=== PATIENT | female | born 1960 | race Caucasian/White ===

== ENCOUNTER 2019-04-02 16:55 | Emergency (ER) | payer OTHER ==
--- NOTE | 2019-04-02 17:11 | ED Physician Documentation ---
General Adult - HISTORIAN Historian: patient - HPI Stated Complaint: laceration Chief Complaint: Laceration/Recheck/Suture Additional Information: Patient presents to ED with complaints of laceration to left hand and left wrist pain after falling last night around 2200. Patient states she did not hit her head. She reports walking outside in the dark and falling over concrete blocks. Onset: hours (22) Timing: still present Severity: moderate - ROS CONST: no problems EYES/ENT: none CVS/RESP: none GI/: none MS/SKIN/LYMPH: none NEURO/PSYCH: denies: headache - PAST HX Past History: none Other History: none Surgeries/Procedures: none Immunizations: denies: tetanus Allergies/Adverse Reactions: Allergies Allergy/AdvReac Type Severity Reaction Status Date / Time aspirin Allergy Verified 04/02/19 17:09 codeine Allergy Verified 04/02/19 17:09 ibuprofen Allergy Verified 04/02/19 17:09 Home Medications: Ambulatory Orders Medication Instructions Recorded Citalopram Hydrobromide 20 mg PO DAILY 04/02/19 [Citalopram HBr] Clonazepam 0.5 mg PO BID PRN 04/02/19 Gabapentin [Neurontin] 800 mg PO QID 04/02/19 HYDROcodone /APAP 5/325 [[place] 1 tab PO DAILY 04/02/19 5/325] Propranolol HCl [Inderal] 10 mg PO BID 04/02/19 Ranitidine HCl [Heartburn Relief] 150 mg PO BID 04/02/19 Simvastatin 40 mg PO DAILY 04/02/19 Valacyclovir HCl [Valtrex] 500 mg PO BID 04/02/19 - SOCIAL HX Smoking History: cigarettes Alcohol Use: none Drug Use: none - FAMILY HX Family History: No - VITAL SIGNS Vital Signs: Vital Signs Temp Pulse Resp BP Pulse Ox 96.7 F L 88 22 124/84 97 04/02/19 17:00 04/02/19 17:00 04/02/19 17:00 04/02/19 17:00 04/02/19 17:00 - REVIEWED ASSESSMENTS Nursing Assessment Reviewed: Yes Vitals Reviewed: Yes ED Results Lab/Radiology - Radiology Radiology Impressions: Report Submission Date: Apr 02, 2019 5:39:42 PM LARD BLEACHER Patient Study Name: IVELISSE VASQUEZ Date: Apr 02, 2019 5:02:40 PM [facility]ARD BLEACHER Modality Type: DX Gender: F Description: WRIST 3 VIEWS OR MORE : 60 Institution: [facility] Physician: YENNY SHERWOOD 3 views of the left wrist History: ORDER STATES FALL LEFT WRIST PAIN PT STATES NO PREVIOUS INJURY .HX OF CARPAL TUNNEL. LT WRIST PAIN AFTER FALL TODAY No comparison studies Cortical irregularity of the distal left radius. Soft tissue swelling is present. Cystic lucencies of the carpal bones are suggestive of degenerative change. A small osseous fragment is noted at the base of the 1st metacarpal. Displacement of the ventral fat pads seen Impression: 1. Displaced ventral fat pads with soft tissue swelling is concerning for an occ ult fracture. There is cortical irregularity of the left distal radius, ? Architectural versus related to fracture. Fracture is not excluded. Recommend followup study in approximately 7 days. Cross-sectional imaging may be done if needed. Degenerative changes of the carpal bones 2. Small osseous density at the base of the 1st metacarpal may be related to avulsion injury. Electronically signed on Apr 02, 2019 5:39:42 PM LARD BLEACHER by: Melania Preston - Orders Orders: ED Orders Category Date Time Status Cock-Up Splint 1T Care 04/02/19 17:48 Ordered WRIST 3 VIEWS OR MORE [RAD] Stat Exams 04/02/19 Completed Diph,Pertuss(Acell),Tet Vac/Pf [Adacel] Med 04/02/19 17:11 Discontinued 0.5 ml IM .ONCE ONE General Adult Physical Exam - PHYSICAL EXAM GENERAL APPEARANCE: no distress EENT: JINNY NECK: normal inspection, supple RESPIRATORY: no resp distress, breath sounds normal CVS: reg rate & rhythm, heart sounds normal ABDOMEN: soft, normal bowel sounds RECTAL: normal exam BACK: normal inspection SKIN: warm/dry EXTREMITIES: other (3 cm abrasion to lesser thenar of left hand. ) NEURO: oriented X3, mood/affect nml Discharge Clincal Impression: Left wrist pain Hand abrasion Qualifiers: Encounter type: initial encounter Laterality: left Qualified Code(s): S60.512A - Abrasion of left hand, initial encounter Referrals: Primary Doctor,No [Primary Care Provider] - 2 Days Additional Instructions: 1. Tylenol 650mg every 4 hours as needed for pain 2. Elevate left arm while at rest, apply ice to affected area as needed for pain. 3. Follow up with PCP within 1 week to have left wrist re-evaluated with xray. 4. Return to ER for new or worsening symptoms Condition: Stable Disposition: 01 HOME, SELF-CARE Decision to Admit: NO Date of Decison to Admit: 04/02/19 Decision Time: 17:33
[2019-04-02 17:29] VITALS: BP 124/84
[2019-04-02] MEDS: DIPH,PERTUSS(ACELL),TET VAC/PF 0.5 ML DISP.SYRIN IM ONE (17:40)
--- NOTE | 2019-04-02 17:45 | Diagnostic Imaging Report ---
PATIENT MR#: [id number] PATIENT PATIENT NAME: IVELISSE VASQUEZ DATE OF : 1960 REFERRING PHYSICIAN: Deepika Owens EXAM DATE: 04/02/2019 ACCESSION NUMBER: [id number] EXAM DESCRIPTION: WRIST 3 VIEWS OR MORE 3 views of the left wrist History: ORDER STATES FALL LEFT WRIST PAIN PT STATES NO PREVIOUS INJURY .HX OF CARPAL TUNNEL. LT WRIS T PAIN AFTER FALL TODAY No comparison studies Cortical irregularity of the distal left radius. Soft tissue swelling is present. Cystic lucencies of the carpal bones are suggestive of degenerative change. A small osseous fragment is noted at the base of the 1st metac arpal. Displacement of the ventral fat pads seen Impression: 1. Displaced ventral fat pads with soft tissue swelling is concerning for an occult fracture. There i s cortical irregularity of the left distal radius, ? Architectural versus related to fracture. Fracture is not e xcluded. Recommend followup study in approximately 7 days. Cross-sectional imaging may be done if needed. Degenerative c hanges of the carpal bones 2. Small osseous density at the base of the 1st metacarpal may be related to avulsion injury. Read by: Dr. Melania Preston Transcribed by: Transcribed Date: Electronically signed by: Dr. Melania Preston Date signed: 04/02/2019 5:44:43 PM
== END 2019-04-02 17:56 | disposition home or self-care (01) ==
LOC: ED 16:55
DX: S60.512A Abrasion of left hand, initial encounter (principal); W19.XXXA Unspecified fall, initial encounter; Y93.01 Activity, walking, marching and hiking
CPT/HCPCS: 90471; 90715; 99282; 99284